=== PATIENT | female | born 1945 | race Caucasian/White ===

== ENCOUNTER 2018-06-05 07:42 | Inpatient (IN) | payer MEDICARE, BC ==
[~2018-06-05] VITALS: Ht 165.1 cm; Wt 59.0 kg
--- NOTE | ~2018-06-05 | OP ---
[address] [address] OPERATIVE REPORT Name: JESUS COSBY Room: [address] IN .R.#: [id number] Admission: 06/05/18 Attend Phys: Maksim Perez MD Discharge: Date of : 47 Report #: [id number] THIS REPORT FOR: //name// CC: Maksim Byrd PREOPERATIVE DIAGNOSIS: Comminuted displaced fractures of the left lateral tibial plateau and left proximal fibula. POSTOPERATIVE DIAGNOSIS: Comminuted displaced fractures of the left lateral tibial plateau and left proximal fibula. OPERATIVE PROCEDURES PERFORMED: Open reduction and internal fixation of comminuted displaced fractures of the left lateral tibial plateau with bone grafting. DESCRIPTION OF PROCEDURE: Under general endotracheal anesthesia, the patient was placed onto the Rodney table in the supine position. Routine prep and drape was performed of the left leg and foot. The procedure was performed under tourniquet ischemia. Bleeding was controlled by electrocautery. The wound was irrigated every 20 minutes with the bacitracin solution. Following the appropriate time-out procedure, a 7-inch skin incision was made over the lateral aspect of the knee and proximal tibia. The incision was carried through the skin and subcutaneous tissue. The incision was carried over the lateral joint line anteriorly and then curved distally over the tibial crest. The joint line was identified. An incision was made into the capsule just under the lateral meniscus. This allowed direct vision across the comminuted fracture site. There was a displaced fragment of the lateral tibial plateau. A portion of the central tibial plateau was depressed. The depressed portions of the comminuted fractures were elevated with periosteal elevator. These fragments were then held in place with Steinmann 0.62 pins. Allograft bone graft was then placed in the tibial void. The displaced shell of the lateral acetabulum was then reduced into an anatomic position and was also pinned. A compression plate with its component screws were then applied, securing the fractures in a near anatomic position. All of the Steinmann pins were removed. The procedure was performed under C-arm fluoroscopy control. Preoperative and postoperative x-rays were obtained. The wound was copiously irrigated and was then closed in layers with 0 Vicryl for the capsular and fascial layers. The subcutaneous tissue was closed with 2-0 Vicryl. The skin was closed with skin nish. Sterile dressing was applied. The patient tolerated the procedure well and was returned to the recovery area in good condition. By: [id number] Williamson MD /mariya
[2018-06-05 07:43] VITALS: BP 123/53
[2018-06-05] MEDS ORDERED: CLARITIN10 MG PO (07:49)
[2018-06-05] MEDS ORDERED: MOBIC7.5 MG PO (07:49)
[2018-06-05] MEDS ORDERED: MIRCERA30 MCG/0.3 INJECTION (07:49)
[2018-06-05] MEDS ORDERED: LEXAPRO 10 MG T10 M2 PO (07:50)
[2018-06-05] MEDS ORDERED: PRILOSEC 10MG C10 MG PO (07:50)
[2018-06-05 08:43] LABS: ABSOLUTE EOSINOPHILS 0.1 thou/uL (0.0-0.7); ABSOLUTE LYMPHOCYTES 0.7 thou/uL (0.8-5.3); ABSOLUTE MONOCYTES 0.3 thou/uL (0.0-1.2); ABSOLUTE NEUTROPHILS 4.3 thou/uL (1.6-8.1); BASOPHILS 0.6 %; EOSINOPHILS 2.3 %; HEMATOCRIT 29.9 % (37.0-47.0); LYMPHOCYTES 13.2 %; MCH 30.5 pg (26.0-34.0); MCHC 33.5 g/dL (28.0-37.0); MCV 91.2 fL (80.0-100.0); MONOCYTES 6.2 %; MPV 7.7 fl. (7.2-11.1); NUCLEATED RBCS 0 /100WBC; PLATELET COUNT* 230 thou/uL (150-400); POLYS 77.7 %; RBC 3.27 mil/uL (4.20-5.00); RDW-CV 13.4 % (10.5-14.5); WBC 5.5 thou/uL (4.0-11.0)
[2018-06-05 08:50] LABS: ANION GAP 4 mmol/L (7-16); BUN 27 mg/dL (7-18); CALCIUM 8.4 mg/dL (8.5-10.1); CHLORIDE 106 mmol/L (98-107); CO2 30 mmol/L (21-32); GLUCOSE 100 mg/dL (70-99); POTASSIUM 4.8 mmol/L (3.5-5.1); SODIUM 140 mmol/L (136-145)
[2018-06-05 08:57] LABS: ALBUMIN 3.1 g/dL (3.4-5.0); ALKALINE PHOSPHATASE 64 U/L (46-116); SGOT 22 U/L (15-37); SGPT 17 U/L (30-65); TOTAL BILIRUBIN 0.3 mg/dL (<0.1-1.0); TROPONIN-I LEVEL <0.06 ng/mL (<0.06)
--- NOTE | 2018-06-05 11:37 | EKG ---
[place] [address] ELECTROCARDIOGRAM REPORT Name: JESUS COSBY Room: [facility]#: [id number] Admission: 06/05/18 Attend Phys: Discharge: Date of : 47 Report #: [id number] THIS REPORT FOR: //name// [facility] ED Test Date: 2018-06-05 Test Time: 08:20:41 Pat Name: JESUS COSBY Department: Room: Gender: F Tank Cooper: ASH : 1945 Requested By: Clif Ny Order Number: [id number] MD: Evaristo Wan Measurements Intervals [place] Rate: 72 P: 0 WA: 149 QRS: 6 QRSD: 85 T: 30 QT: 382 QTc: 419 Interpretive Statements Sinus rhythm septal q waves Borderline low voltage, extremity leads No previous ECG available for comparison Electronically Signed On 06-05-2018 11:37:16 IMPROVEMENT NURSE by Evaristo Wan [email or web address] <ELECTRONICALLY SIGNED> By: Evaristo Wan MD, [facility] 06/05/18 1137 08 08 Evaristo Wan MD, FACC /EPI
[2018-06-05 16:04] VITALS: BP 113/56
[2018-06-05 16:42] VITALS: BP 125/83
[2018-06-05] MEDS ORDERED: FLONASE 0.05%50 MCG NASAL (18:57)
[2018-06-05] MEDS ORDERED: LUTEIN-ZEAXANT1 EAC1 PO (18:58)
[2018-06-05] MEDS ORDERED: UNICOMPLEX M TA1 TA1 PO (18:58)
[2018-06-05] MEDS ORDERED: LEXAPRO20 MG PO (18:59)
[2018-06-05] MEDS ORDERED: MELATONIN3 MG PO (18:59)
[2018-06-05] MEDS ORDERED: MIRALAX17 GM PO (19:00)
[2018-06-05] MEDS ORDERED: MAALOX ADVANCE355 ML PO (19:01)
[2018-06-05] MEDS ORDERED: PROBIOTIC1 EAC1 PO (19:02)
[2018-06-05] MEDS ORDERED: WELLBUTRIN 75 M75 M1 PO (19:02)
[2018-06-05] MEDS ORDERED: TYLENOL EXTRA500 MG PO (19:03)
[2018-06-05 20:00] VITALS: BP 162/60
[2018-06-06 08:30] VITALS: BP 133/65
--- NOTE | 2018-06-06 10:58 | CON ---
[address] [address] CONSULTATION Name: JESUS COSBY Room: [address] IN M.R.#: [id number] Admission: 06/05/18 Attend Phys: Maksim Perez MD Discharge: Date of : 47 Report #: [id number] THIS REPORT FOR: //name// CC: Maksim Byrd HISTORY OF PRESENT ILLNESS: This 72-year-old female was seen complaining of acute pain about her left knee. She fell down a flight of stairs at her residence sustaining an impacted left lateral tibial plateau fracture and a fracture of the proximal fibula. She was advised to become hospitalized for acute care. Her past history revealed her to have been treated for primary progressive aphasia, gastric reflux (GERD), and depression. FAMILY HISTORY: Noncontributory. REVIEW OF SYSTEMS: Her 14-point review of systems was not remarkable except for the above mentioned. PHYSICAL EXAMINATION: GENERAL: Today revealed a well-developed, well-nourished female who appeared to be in acute distress with her left lower extremity. Secondary to her primary progressive aphasia, she is nonverbal and communicates by either thumb up or thumb down for yes or no and good or bad. The family relates that her progressive aphasia is becoming progressively worse. EXTREMITIES: She is tender about the left knee and complains of pain upon any motion or manipulation. IMAGING DATA: Her x-rays were reviewed. She has comminuted displaced left lateral tibial plateau fracture. ASSESSMENT AND PLAN: From an orthopedic standpoint, her fracture would require an open reduction and internal fixation to restore the normal anatomy and function about her knee. If she is medically cleared, this procedure will be performed. If she is not medically cleared, her left lower extremity will be immobilized in a cast or fracture brace. We will obtain a CT scan of her left lateral tibial plateau fracture. She will be reevaluated again in the morning. We will then see if she is medically cleared for surgery and whether any surgery would be contemplated at that time. DIAGNOSES: Comminuted impacted left lateral tibial plateau fracture, fracture of the proximal left fibula, primary progressive aphasia, gastroesophageal reflux disease, history of depression. <ELECTRONICALLY SIGNED> By: Yoshi Williamson MD 06/06/18 1058 1804 0134Joremberto Williamson MD /nt
[2018-06-06 11:56] VITALS: BP 108/58
[2018-06-06 12:03] LABS: PROTIME 10.7 Seconds (9.20-11.50)
[2018-06-06 15:04] VITALS: BP 108/58
[2018-06-06 15:45] VITALS: BP 130/74
[2018-06-06 21:20] VITALS: BP 150/86
[2018-06-07] VITALS: BP 134/78
[2018-06-07 04:00] VITALS: BP 129/74
[2018-06-07 04:36] LABS: HEMATOCRIT 24.5 % (37.0-47.0); HEMOGLOBIN 8.3 gm/dL (12.0-15.0); MCH 30.5 pg (26.0-34.0); MCHC 33.9 g/dL (28.0-37.0); MCV 90.2 fL (80.0-100.0); MPV 7.9 fl. (7.2-11.1); RBC 2.72 mil/uL (4.20-5.00); RDW-CV 13.1 % (10.5-14.5); WBC 8.8 thou/uL (4.0-11.0)
[2018-06-07 09:52] VITALS: BP 116/62
[2018-06-07 12:00] VITALS: BP 104/64
[2018-06-07 20:00] VITALS: BP 106/60
[2018-06-08] VITALS (8 sets, daily range): BP systolic 85–119; BP diastolic 34–69
[2018-06-08 04:18] LABS: HEMATOCRIT 21.6 % (37.0-47.0); HEMOGLOBIN 7.3 gm/dL (12.0-15.0)
[2018-06-08 10:33] LABS: CALCIUM 8.1 mg/dL (8.5-10.1); CREATININE 1.3 mg/dL (0.6-1.3); MAGNESIUM 1.9 mg/dL (1.8-2.4); POTASSIUM 3.9 mmol/L (3.5-5.1)
[2018-06-09] VITALS (10 sets, daily range): BP systolic 99–117; BP diastolic 39–60
[2018-06-09 04:29] LABS: MCH 30.7 pg (26.0-34.0); MCHC 33.9 g/dL (28.0-37.0); MCV 90.6 fL (80.0-100.0); MPV 7.8 fl. (7.2-11.1); RBC 2.05 mil/uL (4.20-5.00); RDW-CV 13.1 % (10.5-14.5); WBC 5.2 thou/uL (4.0-11.0)
[2018-06-09 04:38] LABS: HEMATOCRIT 18.5 % (37.0-47.0); HEMOGLOBIN 6.3 gm/dL (12.0-15.0)
[2018-06-09 04:46] LABS: CALCIUM 7.9 mg/dL (8.5-10.1); CREATININE 0.8 mg/dL (0.6-1.3); MAGNESIUM 1.8 mg/dL (1.8-2.4); POTASSIUM 3.5 mmol/L (3.5-5.1); TOTAL BILIRUBIN 0.5 mg/dL (<0.1-1.0); TOTAL PROTEIN 4.6 g/dL (6.4-8.2)
[2018-06-09 13:51] LABS: HEMATOCRIT 24.8 % (37.0-47.0); HEMOGLOBIN 8.4 gm/dL (12.0-15.0)
[2018-06-10 04:00] VITALS: BP 111/60
[2018-06-10 05:39] LABS: HEMATOCRIT 22.5 % (37.0-47.0); HEMOGLOBIN 7.8 gm/dL (12.0-15.0); MCH 31.1 pg (26.0-34.0); MCHC 34.5 g/dL (28.0-37.0); MPV 7.8 fl. (7.2-11.1); RBC 2.5 mil/uL (4.20-5.00); RDW-CV 13.1 % (10.5-14.5); WBC 6.6 thou/uL (4.0-11.0)
[2018-06-10 05:50] LABS: CALCIUM 8.3 mg/dL (8.5-10.1); CREATININE 0.7 mg/dL (0.6-1.3); MAGNESIUM 1.8 mg/dL (1.8-2.4); POTASSIUM 3.4 mmol/L (3.5-5.1)
[2018-06-10 07:50] VITALS: BP 110/58
[2018-06-10] MEDS ORDERED: ENOXAPARIN30 MG/0.1 SUBQ (09:49)
[2018-06-10] MEDS ORDERED: NORCO 5-325 TA1 EACH PO (09:49)
[2018-06-10] MEDS ORDERED: COLACE 100 MG100 MG PO (09:49)
[2018-06-10 11:34] VITALS: BP 113/58
[2018-06-10 12:51] VITALS: BP 113/58
== END 2018-06-10 17:25 | DRG 492 ==
LOC: M.ERS 07:42 → M.2W 14:27 → M.TBA-ER 14:27 → M.ORTHSURG 14:27 → M.ICU 06-08 12:57 → M.2W 06-09 13:55
PROVIDERS: Emergency Medicine Emergency Medical Services; Family Medicine; Specialist; ADMIT Internal Medicine
PROC: 0QSH04Z Reposition Left Tibia with Internal Fixation Device, Open Approach (ICD-10-PCS; principal; 2018-06-07)
PROC: 0QUH0KZ Supplement Left Tibia with Nonautologous Tissue Substitute, Open Approach (ICD-10-PCS; principal; 2018-06-07)
PROC: 30233N1 Transfusion of Nonautologous Red Blood Cells into Peripheral Vein, Percutaneous Approach (ICD-10-PCS; 2018-06-09)
DX: S82.142A Displaced bicondylar fracture of left tibia, initial encounter for closed fracture (principal); J96.91 Respiratory failure, unspecified with hypoxia; D62 Acute posthemorrhagic anemia; E44.1 Mild protein-calorie malnutrition; S82.402A Unspecified fracture of shaft of left fibula, initial encounter for closed fracture; F02.80 Dementia in other diseases classified elsewhere, unspecified severity, without behavioral disturbance, psychotic disturbance, mood disturbance, and anxiety; F32.9 Major depressive disorder, single episode, unspecified; W10.8XXA Fall (on) (from) other stairs and steps, initial encounter; G31.01 Pick's disease; Y93.01 Activity, walking, marching and hiking; R13.10 Dysphagia, unspecified; K21.9 Gastro-esophageal reflux disease without esophagitis; Z66 Do not resuscitate; Z79.1 Long term (current) use of non-steroidal anti-inflammatories (NSAID); Z88.0 Allergy status to penicillin; Z88.8 Allergy status to other drugs, medicaments and biological substances; Z79.899 Other long term (current) drug therapy; Y92.89 Other specified places as the place of occurrence of the external cause; Y99.8 Other external cause status

== ENCOUNTER 2019-05-29 10:51 | Inpatient (IN) | payer MEDICARE, BC ==
[~2019-05-29] VITALS: Ht 170.2 cm; Wt 52.6 kg
[~2019-05-29 10:51] MED LIST: CLARITIN10 MG PO; COLACE 100 MG100 MG PO; ENOXAPARIN30 MG/0.1 SUBQ; FLONASE 0.05%50 MCG NASAL; LEXAPRO 10 MG T10 M2 PO; LEXAPRO20 MG PO; LUTEIN-ZEAXANT1 EAC1 PO; MAALOX ADVANCE355 ML PO; MELATONIN3 MG PO; MIRALAX17 GM PO; MIRCERA30 MCG/0.3 INJECTION; MOBIC7.5 MG PO; NORCO 5-325 TA1 EACH PO; PRILOSEC 10MG C10 MG PO; PROBIOTIC1 EAC1 PO; TYLENOL EXTRA500 MG PO; UNICOMPLEX M TA1 TA1 PO; WELLBUTRIN 75 M75 M1 PO
[2019-05-29 10:54] VITALS: BP 128/48
[2019-05-29] MEDS ORDERED: XANAX 0.25 MG0.25 MG PO (11:08)
[2019-05-29] MEDS ORDERED: CARBIDOPA-LEVO1 EAC5 PO (11:08)
[2019-05-29] MEDS ORDERED: PYRIDIUM200 M2 PO (11:09)
[2019-05-29 11:33] LABS: HEMATOCRIT 30.1 % (37.0-47.0); HEMOGLOBIN 10.1 gm/dL (12.0-15.0); MCH 31.4 pg (26.0-34.0); MCHC 33.7 g/dL (28.0-37.0); MCV 93.2 fL (80.0-100.0); MPV 7.8 fl. (7.2-11.1); NUCLEATED RBCS 0 /100WBC; PLATELET COUNT* 262 thou/uL (150-400); RBC 3.23 mil/uL (4.20-5.00); RDW-CV 13.8 % (10.5-14.5); WBC 11.3 thou/uL (4.0-11.0)
[2019-05-29 11:38] LABS: CREATININE 0.8 mg/dL (0.6-1.3); POTASSIUM 3.8 mmol/L (3.5-5.1)
[2019-05-29 11:42] LABS: ALBUMIN 3.9 g/dL (3.4-5.0); TOTAL BILIRUBIN 0.5 mg/dL (<0.1-1.0); TOTAL PROTEIN 6.8 g/dL (6.4-8.2)
[2019-05-29 12:16] LABS: ABSOLUTE LYMPHOCYTES 0.2 thou/uL (0.8-5.3); ABSOLUTE MONOCYTES 0.3 thou/uL (0.0-1.2); ABSOLUTE NEUTROPHILS 10.7 thou/uL (1.6-8.1); PLATELET ESTIMATE ADEQUATE
[2019-05-29 12:17] LABS: ANISOCYTOSIS 1+; POIKILOCYTOSIS 1+
[2019-05-29 14:15] LABS: INFLUENZA A ANTIGEN Negative (Negative); INFLUENZA B ANTIGEN Negative (Negative)
[2019-05-29 14:35] VITALS: BP 109/55
--- NOTE | 2019-05-29 16:55 | EKG ---
[place] [address] ELECTROCARDIOGRAM REPORT Name: JESUS COSBY Room: [address] IN .R.#: [id number] Admission: 05/29/19 Attend Phys: Maksim Perez MD Discharge: Date of : 47 Report #: [id number] THIS REPORT FOR: //name// [facility] ED Test Date: 2019-05-29 Test Time: 12:56:04 Pat Name: JESUS COSBY Department: Room: [facility] Gender: F Felter [employer]: OBINNA : 1945 Requested By: Clif Ny Order Number: [id number] MD: Yoshi Andrade Measurements Intervals [place] Rate: 101 P: 73 IL: 138 QRS: 12 QRSD: 142 T: 89 QT: 335 QTc: 435 Interpretive Statements Sinus tachycardia Nonspecific intraventricular conduction delay Anteroseptal infarct, old possible Compared to ECG 06/05/2018 08:20:41 Intraventricular conduction delay now present Myocardial infarct finding suggested Sinus rate has increased Electronically Signed On 05-29-2019 16:55:39 EXCELLENCE CONSULTANT by Yoshi Andrade [email or web address] <ELECTRONICALLY SIGNED> By: Yoshi Andrade MD, FAC 05/29/19 1655 1256 1256 Yoshi Andrade MD, [facility] /EPI
[2019-05-29 18:22] LABS: URINE BILIRUBIN NEGATIVE (Negative); URINE BLOOD TRACE (Negative); URINE CLARITY CLEAR; URINE COLOR YELLOW; URINE GLUCOSE-RANDOM NEGATIVE (Negative); URINE KETONES NEGATIVE (Negative); URINE LEUKOCYTES-REFLEX NEGATIVE (Negative); URINE NITRITE-REFLEX NEGATIVE (Negative); URINE PROTEIN NEGATIVE (Negative); URINE SPECIFIC GRAVITY 1.025 (1.005-1.030); URINE UROBILINOGEN 0.2 E.U./dl (0.2-1.0)
[2019-05-29 20:00] VITALS: BP 111/58
[2019-05-30 05:01] LABS: APTT 26.8 Seconds (25.0-31.3); INR 1.1
[2019-05-30 05:23] VITALS: BP 111/58
[2019-05-30 06:50] LABS: HEMATOCRIT 22.5 % (37.0-47.0); MCH 31.5 pg (26.0-34.0); MCHC 33.5 g/dL (28.0-37.0); MCV 94.2 fL (80.0-100.0); RBC 2.39 mil/uL (4.20-5.00); RDW-CV 13.8 % (10.5-14.5); WBC 6.9 thou/uL (4.0-11.0)
[2019-05-30 06:51] LABS: HEMOGLOBIN 7.5 gm/dL (12.0-15.0)
[2019-05-30 11:30] VITALS: BP 112/67
--- NOTE | 2019-05-30 11:53 | CON ---
[address] [address] CONSULTATION Name: HARJEETJESUS Lizzy Room: [address]#: [id number] Admission: 05/29/19 Attend Phys: Maksim Perez MD Discharge: Date of : 47 Report #: [id number] THIS REPORT FOR: //name// CC: Nerissa Perez DATE OF SERVICE: 05/29/2019 UROLOGY CONSULTATION REASON FOR CONSULTATION: Urinary retention and difficult Kilpatrick. HISTORY OF PRESENT ILLNESS: The patient is a 73-year-old female with primary progressive aphasia, who was sent to the ER after being found down on the ground at her assisted living facility. She has a hip fracture and apparently the tentative plan is to repair that tomorrow. The nurses attempted to place a catheter for urine specimen and also the patient has been unable to void with a bladder scan of 500 mL. Nursing thinks they have attempted at least 6-7 times and were unable to place a catheter. The patient is aphasic and unable to provide any history. PAST MEDICAL HISTORY: Includes primary progressive aphasia, depression, reflux and constipation, history of pubic rami fracture and a tibia fibula fracture in the past, history of multiple falls and GERD. MEDICATIONS: Reviewed and are per inpatient medical record. ALLERGIES: PENICILLIN AND CEFUROXIME. FAMILY HISTORY: Noncontributory. SOCIAL HISTORY: Per the chart, the patient has no history of tobacco or alcohol use. She lives in an assisted living facility. There is no family at the bedside. REVIEW OF SYSTEMS: Twelve-point review of systems was unable to be performed as the patient is aphasic. PHYSICAL EXAMINATION: VITAL SIGNS: Temperature is 38.1, pulse 98, respirations 12, blood pressure 109/55, and pulse ox is 96% on room air. GENERAL: She is a well-developed, thin, frail appearing white female, in no acute distress. She is alert, but aphasic. She responds to questions with thumbs up or thumbs down. HEENT: Normocephalic, atraumatic. LUNGS: [place] [address] CONSULTATION Name: JESUS COSBY Room: [address] IN [facility]#: [id number] Admission: 05/29/19 Attend Phys: Maksim Perez MD Discharge: Date of : 47 Report #: [id number] HEART: Regular. ABDOMEN: Soft, nontender, nondistended. GENITOURINARY: Externally normal, but obvious atrophy. EXTREMITIES: Without edema and somewhat contracted. She is unable to move her right side because of the hip fracture. SKIN: Without lesions or rashes. She does have some bruising on her face. LABORATORY DATA: Her white count is 11.3, hemoglobin 10, and platelets 262. Her BUN is 29 and creatinine is 0.8. Abdomen and pelvis CT was reviewed. She has had multiple CTs in the ER that showed no abnormality of the kidneys, there were no stones and no hydronephrosis. ASSESSMENT AND PLAN: 1. Urinary retention. 2. Difficult Kilpatrick. After the patient's genitalia were prepped with difficulty, I was able to place a 16-Turkmen Regular Kilpatrick catheter blindly just using finger in the vagina underneath the urethra as a guide as she is unable to frogleg at all given her hip fracture and contracted extremities. This was quite difficult, but I was successfully able to place the catheter and approximately 400 mL of yellow urine was drained. The balloon was inflated to 10 mL of sterile water and the catheter was still draining when I left. Would recommend leaving the Kilpatrick catheter in until she is much more recovered. Urinalysis will be sent. I am unsure of her ambulatory status prior to this injury, certainly needs to be postop several days before a voiding trial is attempted. We will follow from a distance. Please call with any questions or concerns. <ELECTRONICALLY SIGNED> By: Britney Dowling MD 05/30/19 1153 1751 [id number] Dowling MD /nt
--- NOTE | 2019-05-30 13:29 | EKG ---
[place] [address] ELECTROCARDIOGRAM REPORT Name: JESUS COSBY Room: [address] ADM IN M.R.#: [id number] Admission: 05/29/19 Attend Phys: Maksim Perez MD Discharge: Date of : 47 Report #: [id number] THIS REPORT FOR: //name// [facility] Test Date: 2019-05-30 Test Time: 06:09:59 Pat Name: JESUS COSBY Department: Room: [address] Gender: F [employer]: AJ : 1945 Requested By: Maksim Perez Order Number: [id number] Reading MD: Yoshi Andrade Measurements Intervals [place] Rate: 84 P: 71 ME: 150 QRS: 21 QRSD: 88 T: 67 QT: 390 QTc: 462 Interpretive Statements Sinus rhythm Low voltage, extremity leads Compared to ECG 05/29/2019 12:56:04 Low QRS voltage now present Sinus tachycardia no longer present Intraventricular conduction delay no longer present Myocardial infarct finding no longer present Electronically Signed On 05-30-2019 13:29:35 DISPLAY COORDINATOR by Yoshi Andrade [email or web address] <ELECTRONICALLY SIGNED> By: Yoshi Andrade MD, [facility] 05/30/19 1329 0609 0609 Yoshi Andrade MD, [facility] /EPI
[2019-05-30 14:44] LABS: HEMATOCRIT 20.8 % (37.0-47.0); HEMOGLOBIN 7.1 gm/dL (12.0-15.0)
[2019-05-30 16:00] VITALS: BP 117/71
[2019-05-30 19:21] LABS: HEMATOCRIT 20.9 % (37.0-47.0); HEMOGLOBIN 7.2 gm/dL (12.0-15.0)
[2019-05-30 19:55] VITALS: BP 113/63
[2019-05-31] VITALS: BP 105/58
[2019-05-31 04:00] VITALS: BP 102/51
[2019-05-31 08:07] LABS: MCH 32.4 pg (26.0-34.0); MCHC 34.9 g/dL (28.0-37.0); MCV 92.9 fL (80.0-100.0); MPV 7.3 fl. (7.2-11.1); RBC 1.97 mil/uL (4.20-5.00); RDW-CV 13.1 % (10.5-14.5)
[2019-05-31 08:10] VITALS: BP 82/41
[2019-05-31 08:10] LABS: HEMATOCRIT 18.3 % (37.0-47.0); HEMOGLOBIN 6.4 gm/dL (12.0-15.0)
[2019-05-31 08:14] LABS: CALCIUM 8.2 mg/dL (8.5-10.1); MAGNESIUM 1.9 mg/dL (1.8-2.4); POTASSIUM 4.2 mmol/L (3.5-5.1)
[2019-05-31 10:20] VITALS: BP 91/47; BP 92/43; BP 97/51; BP 97/54
[2019-05-31 16:37] LABS: HEMATOCRIT 22.3 % (37.0-47.0); HEMOGLOBIN 7.6 gm/dL (12.0-15.0)
[2019-05-31 20:00] VITALS: BP 118/57
[2019-06-01 04:05] LABS: HEMATOCRIT 20.5 % (37.0-47.0); HEMOGLOBIN 7.1 gm/dL (12.0-15.0); MCH 30.6 pg (26.0-34.0); MCHC 34.4 g/dL (28.0-37.0); MPV 7.5 fl. (7.2-11.1); RBC 2.31 mil/uL (4.20-5.00); RDW-CV 16.8 % (10.5-14.5)
[2019-06-01 04:06] LABS: CALCIUM 7.8 mg/dL (8.5-10.1); CREATININE 0.8 mg/dL (0.6-1.3); MAGNESIUM 1.9 mg/dL (1.8-2.4); POTASSIUM 4.1 mmol/L (3.5-5.1)
[2019-06-01 07:50] VITALS: BP 103/41
--- NOTE | 2019-06-01 13:09 | CON ---
[address] [address] CONSULTATION Name: JESUS COSBY Room: [address] IN ..#: [id number] Admission: 05/29/19 Attend Phys: Maksim Perez MD Discharge: Date of : 47 Report #: [id number] THIS REPORT FOR: //name// CC: Nerissa Perez HISTORY OF PRESENT ILLNESS: This 73-year-old female fell at her assisted living facility. She was found on the floor. She was taken to the Emergency Room, where she was found to have a very comminuted displaced intertrochanteric fracture of her right hip. She was advised to become hospitalized for an open reduction and internal fixation of her right intertrochanteric hip fracture. The risks and benefits of surgery along with possible complications were discussed with she and her family. They agreed to proceed with surgical intervention. She will be taken to surgery once she is medically cleared for definitive treatment. She will subsequently be followed until her fracture has healed. DIAGNOSIS: Displaced comminuted intertrochanteric fracture of the right hip. <ELECTRONICALLY SIGNED> By: Yoshi Williamson MD 06/01/19 1309 0723 0738Joremberto Williamson MD /nt
--- NOTE | 2019-06-01 13:10 | OP ---
[address] [address] OPERATIVE REPORT Name: JESUS COSBY Room: [address] IN ..#: [id number] Admission: 05/29/19 Attend Phys: Maksim Perez MD Discharge: Date of : 47 Report #: [id number] THIS REPORT FOR: //name// CC: Nerissa Perez PREOPERATIVE DIAGNOSIS: Comminuted displaced intertrochanteric fracture of the right hip. POSTOPERATIVE DIAGNOSIS: Comminuted displaced intertrochanteric fracture of the right hip. PROCEDURE PERFORMED: Open reduction and internal fixation of comminuted displaced intertrochanteric fracture of the right hip. DESCRIPTION OF PROCEDURE: This patient was taken to the operating room and placed on the fracture table. General anesthesia was administered. Right leg was then placed in traction on the operating room table. Her fracture was reduced under C-arm fluoroscopy control. A routine prep and drape was performed of the right hip and leg. Following the appropriate timeout procedure, a 3 cm incision was made at the tip of the greater trochanter. Incision was carried through the skin, subcutaneous tissue and fascia kaylene. An awl was used to introduce a guidewire across the fracture site under C-arm fluoroscopy control. A flexible reamer was then used, measuring 11 mm in diameter. The greater trochanteric area was reamed up to 15.5 mm. A long gamma nail measuring 38 cm was then inserted under C-arm fluoroscopy control. A guidewire was then placed through the lateral aspect of the hip through the gamma nail and into the femoral head following near anatomic reduction of her femoral neck fracture. A 100 mm compression nail was inserted under C-arm fluoroscopy guidance. The fracture was then compressed. The tip of the gamma nail was locked under C-arm fluoroscopy guidance. The compression nail was locked with its component locking screw. The wounds were copiously irrigated. The insertion devices were removed. The wounds were closed with the use of 0 Vicryl for the fascial layer. The subcutaneous tissue was closed with 2-0 Vicryl. The skin was closed with skin nish. A sterile dressing was applied. The patient tolerated the procedure well and was returned to the recovery area in good condition. <ELECTRONICALLY SIGNED> By: Yoshi Williamson MD 06/01/19 1310 1000 [id number] Williamson MD /nt
[2019-06-01 14:46] LABS: HEMOGLOBIN 7.9 gm/dL (12.0-15.0)
[2019-06-01 16:31] VITALS: BP 103/53
[2019-06-01 20:30] VITALS: BP 107/53
[2019-06-02 07:35] VITALS: BP 123/60
[2019-06-02] MEDS ORDERED: NORCO 10-325 T1 EACH PO (08:22)
[2019-06-02] MEDS ORDERED: ENOXAPARIN30 MG/0.1 SUBQ (08:22)
[2019-06-02] MEDS ORDERED: TRAMADOL 50 MG50 MG PO (08:22)
[2019-06-02] MEDS ORDERED: LIDOPATCH1 EACH TOP (08:22)
[2019-06-02] MEDS ORDERED: ASPIRIN325 PO (08:22)
[2019-06-02 13:04] VITALS: BP 123/60
[2019-06-02 13:44] VITALS: BP 123/60
[2019-06-02 14:19] VITALS: BP 123/60
[2019-06-02 18:45] VITALS: BP 123/60
== END 2019-06-02 18:45 | DRG 481 ==
LOC: M.ERS 10:51 → M.TBA-ER 13:09 → M.ORTHSURG 13:09
PROVIDERS: Emergency Medicine Emergency Medical Services; Specialist; ADMIT Internal Medicine
PROC: 0QS604Z Reposition Right Upper Femur with Internal Fixation Device, Open Approach (ICD-10-PCS; principal; 2019-05-29)
PROC: 30233N1 Transfusion of Nonautologous Red Blood Cells into Peripheral Vein, Percutaneous Approach (ICD-10-PCS; 2019-05-31)
DX: M80.052A Age-related osteoporosis with current pathological fracture, left femur, initial encounter for fracture (principal); R65.10 Systemic inflammatory response syndrome (SIRS) of non-infectious origin without acute organ dysfunction; M62.82 Rhabdomyolysis; D62 Acute posthemorrhagic anemia; F32.9 Major depressive disorder, single episode, unspecified; K21.9 Gastro-esophageal reflux disease without esophagitis; K59.00 Constipation, unspecified; R33.9 Retention of urine, unspecified; Z66 Do not resuscitate; F41.1 Generalized anxiety disorder; M19.90 Unspecified osteoarthritis, unspecified site; G47.00 Insomnia, unspecified; Z87.81 Personal history of (healed) traumatic fracture; Z88.0 Allergy status to penicillin; Z88.8 Allergy status to other drugs, medicaments and biological substances; Z79.899 Other long term (current) drug therapy

== ENCOUNTER → 2019-06-13 | Outpatient (CLI) | payer MEDICARE, BC ==
[~2019-06-13] MED LIST changes: +ASPIRIN325 PO; +CARBIDOPA-LEVO1 EAC5 PO; +LIDOPATCH1 EACH TOP; +NORCO 10-325 T1 EACH PO; +PYRIDIUM200 M2 PO; +TRAMADOL 50 MG50 MG PO; +XANAX 0.25 MG0.25 MG PO
== END ==
LOC: M.RAD 14:26
DX: S72.141A Displaced intertrochanteric fracture of right femur, initial encounter for closed fracture (principal); X58.XXXA Exposure to other specified factors, initial encounter; M89.8X5 Other specified disorders of bone, thigh; Y93.89 Activity, other specified; Y92.89 Other specified places as the place of occurrence of the external cause; Y99.8 Other external cause status